=== PATIENT | male | born 1955 | race Caucasian/White ===

== ENCOUNTER 2023-12-21 15:36 | Outpatient (REF) | payer MEDICARE, SELFPAY | END 2023-12-21 15:37 | disposition home or self-care (01) | LOC: HO.BBR 15:36 | PROVIDERS: Visit Provider Family Medicine | DX: E83.110 Hereditary hemochromatosis (principal); D75.1 Secondary polycythemia | CPT/HCPCS: 85014; 85018; 99195 ==

== ENCOUNTER 2024-02-17 11:08 | Outpatient (REF) | payer MEDICARE, SELFPAY | END 2024-02-17 11:09 | disposition home or self-care (01) | LOC: HO.BBR 11:08 | PROVIDERS: Visit Provider Family Medicine | DX: D75.1 Secondary polycythemia (principal) | CPT/HCPCS: 85014; 85018; 99195 ==

== ENCOUNTER 2024-04-13 15:20 | Outpatient (REF) | payer MEDICARE, SELFPAY | END 2024-04-13 15:21 | disposition home or self-care (01) | LOC: HO.BBR 15:20 | PROVIDERS: Visit Provider Family Medicine | DX: D75.1 Secondary polycythemia (principal) | CPT/HCPCS: 85014; 85018; 99195 ==

== ENCOUNTER 2024-06-08 15:21 | Outpatient (REF) | payer MEDICARE, SELFPAY | END 2024-06-08 15:22 | disposition home or self-care (01) | LOC: HO.BBR 15:21 | PROVIDERS: Visit Provider Family Medicine | DX: D75.1 Secondary polycythemia (principal) | CPT/HCPCS: 85018; 99195 ==

== ENCOUNTER 2024-08-03 14:55 | Outpatient (REF) | payer MEDICARE, SELFPAY ==
--- OUTSIDE RECORDS SUMMARY | 2024-08-03 14:57 | XMS_ITS | Data Portability ---
Author Organization JANETTE Rosado genevieve [address] Address [address] [place] [address] Assessment No assessment recorded. Plan of Treatment Reminders Order Date Submit Date Provider Last Modified By Organization Details Last Modified Time Details Appointments None recorded. Lab None recorded. Referral None recorded. Procedures None recorded. Surgeries None recorded. Imaging None recorded. Medication Orders valacyclovi r 1 gram tablet 2022 023 [id number], [address] [place], [address], 13:53:20 Patient TargetsNo targets recorded. Patient Instructions Encounter Date Encounter Id Patient Instructions Last Modified By Organization Details Last Modified Time 02/06/2023 [id number] shingles: care instructions [email or web address] Not available 02/06/2023 13:47:03 Based on your ex am and presentation, you are being diagnosed with Shingles. You are going to start an antiviral medication to help suppress the replication of the virus and help you fight the infection. The following are my recommendations to help with your systems and allow your body to heal: 1. No creams or lotions on the vesicles/rash 2. Take Ibuprofen or Tylenol if you do not have any allergies to these medications. If you take a blood thinner you should not take NSAIDS like Ibuprofen. 3. After the rash heals if you are still having pain you can use Over The Counter Lidoderm Patches 4. Try and avoid scratching or rubbing the area to prevent a skin infection. The rash may take 2-3 weeks to completely resolve. You will most likely be done with the medication but still have the rash. In some occasions after the rash heals you may have some residual pain in that area affected - this is called POST HERPATIC NEURALGIA. If you are experiencing this, you can purchase some Lidoderm Patches over the counter and apply one every 12 hours. Most of the time, people use these to help sleep. You should be seen again if you develop any of the following symptoms. 1. Severe Headache 2. New involvement with the eye. 3. Fever 4. Stiff Neck 5. Shortness of breath. I would recommend the Shingles Vaccine. You can receive this 6 months after this infection. Thank you for using [facility], please feel free to contact us if you have any questions or concerns. [email or web address] Not available 02/06/2023 13:47:02 Reason for Referral None Reported. Problems No Known Problems Medical Equipment None Reported. Allergies No known drug allergies Medications Name Sig Start Date Stop Date Status Note LastModified by Organization Details LastModified Time valacyclovir 1 gram tablet Take 1 tablet 3 times a day by oral route for 7 days. 023 active Not Available Not Available Not Avai lable anastrozole active Not Available Not A vailable Not Available testosterone active Not Available Not Available Not Available Vitals Date Recorded Body height Body mass index (BMI) Body weight Respiratory rate Oxygen saturation Oxygen saturation in Arterial blood by Pulse oximetry Heart rate Body temperature Systolic blood pressure Diastolic blood pressure Provider Name and Address Organization Details Last Updated DateTime 3 177.8 cm 25.1 kg/m2 73138.6 6 g 18 /min 96 % 96 % 68 /min 98.1 [degF] 114 mm[Hg] 69 mm[Hg] Negra Ernst [facility] 13:27:05 Social History Question Answer Notes LastModified by Garlik ion Details LastModified Time Tobacco Smoking Status Never Smoker JANETTE Pulido [facility] 02/06/2023 13:25:59 What Is Your Level Of Alcohol Consumption? Occasional Information not available 02/06/2023 How Many Times Per Week Do You Consume Alcohol? Less Than 1 Time Per Week Information not available 02/06/2023 Which Illicit Or Recreational Drugs Have You Used? Marijuana Information not available 02/06/2023 Do You Use Any Illicit Or Recreational Drugs? Yes Information not available 02/06/2023 Have You Recently Traveled Abroad? No Information not available 02/06/2023 Do You Or Have You Ever Used Any Other Forms Of Tobacco Or Nicotine? No Information not available 02/06/2023 Sex: Unknown Functional Status None recorded. Mental Status None recorded. Family History Relationship Description Onset Age of this Age Resolved Age Notes LastModified by Organization Details LastModified Time Father No current problems or disability [email or web address] Not available 02/06 13:25:28 Mother No current problems or disability [email or web address] Not available 02/06 13:25:28 Medical History No medical history recorded. Immunizations Vaccine Type Date Status Note Provider Nam e and Address Organization Details Recorded Time COVID-19, mRNA, LNP-S, PF, 30 mcg/0.3 mL dose 08/14/2021 completed JANETTE Pulido [facility] 02/06/2023 13:22:53 COVID-19, mRNA, LNP-S, PF, 30 mcg/0.3 mL dose 12/19/2020 completed JANETTE Pulido [facility] 02/06/2023 13:22:53 COVID-19, mRNA, LNP-S, PF, 30 mcg/0.3 mL dose 01/16/2021 completed JANETTE Pulido - [facility] 02/06/2023 13:22:53 COVID-19, mRNA, LNP-S, PF, 30 mcg/0.3 mL dose, veronica-sucrose 03/20/2022 completed JANETTE Pulido [facility] 02/06/2023 13:22:53 Past Encounters Encounter ID Performer Location Encounter Start Date Encounter Closed Date Diagnosis/Indication Diagnosis SNOMED-CT Code Diagnosis ICD10 Code [id number] [address] [place] [address] 07/20/2018 14:07:00 07/20/2018 14:53:18 [id number] [facility]RIES [address] [facility] [address] [place] [address] 02/06/2023 13:07:57 02/06/2023 13:47:34 Herpes zoster 4560875 B02.9 Health Concerns Section Related Observation LastModified by Organization Detai ls LastModified Time None Recorded Concern Status LastModified by Organization Details LastModified Time None Recorded Advance Directives Directive None Recorded Payers Encounter Date Sequence Insurance Name Policy Number Policy Jules Covered Member ID Jules Member ID Guarantor Name 07/20/2018 1 [facility] (HMO) [id number] Hai Lopez [id number] Hai Lopez 02/06/2023 1 [place] [employer] Hai Lopez [id number] Hai Lopez 02/06/2023 2 [place] [facility] Hai Lopez [id number] Hai Lopez Notes Date Note Type Note Provider Name and Address Organization Details Recorded Time 3 text/html UC Rash/Skin LesionReported bypatient.source of patient informationInformation obtained from patient; Patient arrived at Urgent Care ambulatory Location:abdomen; back; Left Side Quality:itchy;painful;red Severity:mild Duration:5 days Associated Symptoms:no fever; no fatigueNotes:The patient state that he felt this about 1 week ago. Started to break out in a rash on the left back and now is spreading to the abdomen. The patient thinks it is shingles. No recent vaccination. The patient states that it is tingling but not an excruiating pain. Has not been putting any creams or lotions on the area. Thought it was from wearing his tool belt. Reports that he had chicken pox as a child. JANETTE HUMPHRIES [facility] [place], [address], [place] - [facility] 02/06/2023 14:04:58
== END 2024-08-03 14:56 | disposition home or self-care (01) ==
LOC: HO.BBR 14:55
PROVIDERS: Visit Provider Family Medicine
DX: D75.1 Secondary polycythemia (principal)
CPT/HCPCS: 85018; 99195

== ENCOUNTER 2024-09-28 14:58 | Outpatient (REF) | payer MEDICARE, SELFPAY ==
--- OUTSIDE RECORDS SUMMARY | 2024-09-28 16:05 | XMS_ITS | Data Portability ---
Author Organization JANETTE Rosado genevieve [address] Address [address] [place] [address] Assessment No assessment recorded. Plan of Treatment Reminders Order Date Submit Date Provider Last Modified By Organization Details Last Modified Time Details Appointments None recorded. Lab None recorded. Referral None recorded. Procedures None recorded. Surgeries None recorded. Imaging None recorded. Medication Orders valacyclovi r 1 gram tablet 2022 023 [id number], [address] [place], [address], 13:53:20 Patient TargetsNo targets recorded. Patient Instructions Encounter Date Encounter Id Patient Instructions Last Modified By Organization Details Last Modified Time 02/06/2023 [id number] shingles: care instructions [email or web address] Not available 02/06/2023 13:47:03 Based on your [...] after this infection. Thank you for using [employer], please feel free to contact us if you have any questions or concerns. Not available 02/06/2023 13:47:02 Reason for Referral [...] height Body mass index (BMI) Body weight Pain severity - 0-10 verbal numeric rating [Score] - Reported Respiratory rate Oxygen saturation Oxygen saturation in Arterial blood by Pulse oximetry Heart rate Body temperature Systolic blood pressure Diastolic blood pressure Provider Name and Address Organization Details Last Updated DateTime 3 177.8 cm 25.1 kg/m2 62282.6 6 g 7 18 /min 96 % 96 % 68 /min 98.1 [degF] 114 mm[Hg] 69 mm[Hg] Negra SAVAGE - [employer] [facility] 13:27:05 Social History Question Answer Notes LastModified by [employer] ion Details LastModified Time Tobacco Smoking Status [...] mcg/0.3 mL dose 08/14/2021 completed JANETTE Pulido - [facility] 02/06/2023 13:22:53 COVID-19, mRNA, LNP-S, PF, 30 mcg/0.3 mL dose 12/19/2020 completed Negra seaman [place] - [facility] 02/06/2023 13:22:53 COVID-19, mRNA, LNP-S, PF, 30 mcg/0.3 mL dose 01/16/2021 completed Negra seaman [place] - [facility] 02/06/2023 13:22:53 COVID-19, mRNA, LNP-S, PF, 30 mcg/0.3 mL dose, veronica-sucrose 03/20/2022 completed Negra seaman [place] - [facility] 02/06/2023 13:22:53 Past Encounters Encounter ID Performer Location Encounter Start Date Encounter Closed Date Diagnosis/Indication Diagnosis SNOMED-CT Code Diagnosis ICD10 Code Diagnosis Note [id number] [address] [place] [address] 07/20/2018 14:07:00 07/20/2018 14:53:18 [id number] [facility]RIES [address] [facility] [address] [place] [address] 02/06/2023 13:07:57 02/06/2023 13:47:34 Herpes zoster 5281587 B02.9 Health Concerns Section Related Observation LastModified by Organization Detai ls LastModified Time None Recorded Concern Status LastModified by Organization Details LastModified Time None Recorded Advance Directives Directive None Recorded Payers Encounter Date Sequence Insurance Name Policy Number Policy Jules Covered Member ID Jules Member ID Guarantor Name 07/20/2018 1 [facility] (O) [id number] Hai Lopez [id number] Hai Lopez 02/06/2023 1 [place] [employer] [place] Hai Lopez [id number] Hai Lopez 02/06/2023 2 [place] [facility] Hai Lopez [id number] Hai Lopez Notes Date Note Type Note [...] chicken pox as a child. JANETTE HUMPHRIES [address] [place], [address], [place] - [facility] 02/06/2023 14:04:58
== END 2024-09-28 14:59 | disposition home or self-care (01) ==
LOC: HO.BBR 14:58
PROVIDERS: Visit Provider Family Medicine
DX: D75.1 Secondary polycythemia (principal)
CPT/HCPCS: 85018; 99195

== ENCOUNTER 2024-11-23 15:30 | Outpatient (REF) | payer MEDICARE, SELFPAY ==
--- OUTSIDE RECORDS SUMMARY | 2024-11-23 18:04 | XMS_ITS | Data Portability ---
Author Organization JANETTE Rosado genevieve [address] Address [address] [place] [address] Assessment No assessment recorded. Plan of Treatment Reminders Order Date Submit Date Provider Last Modified By Organization Details Last Modified Time Details Appointments None recorded. Lab None recorded. Referral None recorded. Procedures None recorded. Surgeries None recorded. Imaging None recorded. Medication Orders valacyclovi r 1 gram tablet 2022 023 [email or web address] [id number], [address] [place], [address], 13:53:20 Patient TargetsNo targets recorded. Patient Instructions Encounter Date Encounter Id Patient Instructions Last Modified By Organization Details Last Modified Time 02/06/2023 [id number] shingles: care instructions [email or web address] Not available 02/06/2023 13:47:03 Based on your [...] after this infection. Thank you for using [facility], please feel free to contact us if you have any questions or concerns. [email or web address] Not available 02/06/2023 13:47:02 Reason for Referral [...] Updated DateTime 3 177.8 cm 25.1 kg/m2 32570.6 6 g 7 18 /min 96 % 96 % 68 /min 98.1 [degF] 114 mm[Hg] 69 mm[Hg] Negra SAVAGE - [facility] 13:27:05 Social History Question Answer Notes LastModified by [employer] ion Details LastModified Time Tobacco Smoking Status [...] SNOMED-CT Code Diagnosis ICD10 Code Diagnosis Note [id number] [address] [place] [address] 07/20/2018 14:07:00 07/20/2018 14:53:18 [id number] [facility]ES [address] [facility] [address] [place] [address] 02/06/2023 13:07:57 02/06/2023 13:47:34 Herpes zoster 4432140 B02.9 Health Concerns Section Related Observation LastModified by Organization Detai ls LastModified Time None Recorded Concern Status LastModified by Organization Details LastModified Time None Recorded Advance Directives Directive None Recorded Payers Encounter Date Sequence Insurance Name Policy Number Policy Jules Covered Member ID Jules Member ID Guarantor Name 07/20/2018 1 [facility] (O) [id number] Hai Lopez [id number] Hai Lopez 02/06/2023 1 [place] [employer] Hai Lopez [id number] Hai Lopez 02/06/2023 2 [place] [facility] Hia Lopez [id number] Hai Lopez Notes Date Note Type Note [...] child. JANETTE HUMPHRIES [address] [place], [address], [place] - [facility] 02/06/2023 14:04:58
== END 2024-11-23 15:31 | disposition home or self-care (01) ==
LOC: HO.BBR 15:30
PROVIDERS: Visit Provider Family Medicine
DX: D75.1 Secondary polycythemia (principal)
CPT/HCPCS: 85018; 99195

== ENCOUNTER 2025-02-26 15:32 | Outpatient (REF) | payer MEDICARE, SELFPAY ==
--- OUTSIDE RECORDS SUMMARY | 2025-02-26 16:02 | XMS_ITS | Clinical Summary ---
Author Organization [facility] Address [address] [facility] [address] [place] [address] Phone Care Team Providers Care Silk Screen Printer Machine Name Role Phone Pcp, Unknown Primary Care Provider Unavailabl e Medications testosterone cypionate (DEPO-TESTOTERON E) 100 mg/mL injection Inject 100 mg into the muscle every 14 (fourteen) days. Active anastrozole (ARIMIDEX) 1 mg tablet Take 1 mg by mouth daily. Active Active Problems Problem Noted Date Diagnosed Date Testosterone deficiency 01/07/2018 Overview (01/07/2018): Previously tested by [facility] Immunizations Immunization Administration Dates Next Due COVID-19 (Pre-05/31) Pfizer Vaccine, mRNA, PF ,12/19/2020 Family History Medical History Relation Comments Scleroderma Mother Relation Status Comments Daughter 1 Alive Daughter 2 Alive Father Mother Son 1 Alive Son 2 Alive Social History Tobacco Use Types Packs/Day Years Used Date Smoking Tobacco: Never Smokeless Tobacco: Never Alcohol Use Standard Drinks/Week Comments Yes 0 (1 standard drink = 0.6 oz pur e alcohol) 4/month Education Answer Date Recorded Are you interested in more education? Not on quinten e 12/19/2022 Are you concerned about learning? Not on file 12/19/2022 No 12/19/2022 No 12/19/2022 Digital Access Answer Date Recorded No 01/04/2023 No 01/04/2023 No 01/04/2023 Reliable internet access at home? Not on file 01/04/2023 Device with a working camera? Not on file Sex and Gender Information Value Date Recorded Sex Assigned at Not on file Legal Sex Male 7:03 PM EST Gender Identity Not on file Sexual Orientation Not on file Last Filed Vital Signs Vital Sign Reading Time Taken Comments Blood Pressure 108/72 01/07/2018 2:48 PM EDT Pulse 76 01/07/2018 2:48 PM EDT Temperature - - Respiratory Rate - - Oxygen Saturation 94% 01/07/2018 2:48 PM EDT Inhaled Oxygen Concentration - - Weight 82.1 kg (181 lb) 01/07/2018 2:48 PM EDT Height - - Body Mass Index - - Plan of Treatment Health Maintenance Due Date Last Done Comments Adult Td,Tdap Booster 1957 LIPID PANEL 1957 DEPRESSION SCREENING 1969 HEPATITIS C SCREENING 11/30/1975 COLOGUARD 2002 COLONOSCOPY 2002 COLORECTAL CANCER SCREENING 2002 FIT TEST 2002 FOBT 2002 SIGMOIDOSCOPY 2002 VIRTUAL COLONOSCOPY 2002 PNEUMOCOCCAL VACCINES (50+ years) (1 of 1 - PCV) 11/30/2007 ZOSTER VACCINES (1 of 2) 11/30/2007 COVID-19 VACCINE (3 - 2023-2 5 season) 2024 01/16/2021, 12/19/2020 RSV VACCINE (1 - 1-dose 75+ series) 2032 SMOKING STATUS SCREENING (On ce After 26 Yrs) Completed 01/07/2018 HEPATITIS A VACCINES Aged Out No long er eligible based on patient's age to complete this topic HIB VACCINES Aged Out No longer eligi ble based on patient's age to complete this topic MENINGOCOCCAL VACCINES (ACWY) Aged Out No longer eligible based on patient's age to complete this topic MENINGOCOCCAL VACCINES (B) Aged Out N o longer eligible based on patient's age to complete this topic Medical Devices Not on file [facility] DANIEL XAVIER [facility] NON NSPG PCP [employer]IL[employer] CONNE[employer]ARE [facility] NON NSPG PCP SILVER [employer]ITY CONNECTORCARE [employer] NON NSPG PCP SILVER CL[employer]ITY CONNECTORCARE [employer] NON NSPG PCP SILVER CL[employer]ITY CONNE[employer]CARE [employer] NON NSPG PCP SILVER CL[employer]ITY CONNE[employer]CARE [employer] NON NSPG PCP SIL[employer] CONNE[employer]CARE [employer] NON NSPG PCP S[employer] CONNE[employer] NON NSPG PCP [employer] CONNE[employer]CARE Care Teams Silk Screen Printer Machine Relationship Specialty Start Date End Date Pcp, Unknown PCP - General 02/04/22 Additional Source Comments The information contained in this document represents components of the legal health record. It is not the complete legal health record.[facility]
--- OUTSIDE RECORDS SUMMARY | 2025-02-26 16:02 | XMS_ITS | Data Portability ---
Author Organization JANETTE Rosado genevieve [address] Address [address] [place] [address] Assessment No assessment recorded. Plan of Treatment Reminders Order Date Submit Date Provider Last Modified By Organization Details Last Modified Time Details Appointments None recorded. Lab None recorded. Referral None recorded. Procedures None recorded. Surgeries None recorded. Imaging None recorded. Medication Orders valacyclovi r 1 gram tablet 2022 023 [id number], [address] [place], [address], 13:53:20 Patient TargetsNo targets recorded. Patient Instructions Encounter Date Encounter Id Patient Instructions Last Modified By Organization Details Last Modified Time 02/06/2023 [id number] shingles: care instructions [email or web address] Not available 02/06/2023 13:47:03 Based on your [...] after this infection. Thank you for using [facility], please feel free to contact us if you have any questions or concerns. [email or web address] Not available 02/06/2023 13:47:02 Reason for Referral [...] Pulse oximetry Heart rate Body temperature Systolic And Diastolic Provider Name and Address Organization Details Last Updated DateTime 3 177.8 cm 25.1 kg/m2 61129.6 6 g 18 /min 96 % 96 % 68 /min 98.1 [degF] 114/69 mm[Hg] Negra Ernst [facility] [employer] [facility] 13:27:05 Social History Question Answer Notes LastModified by [employer] Details LastModified Time Tobacco Smoking Status Never Smoker JANETTE Pulido [facility] 02/06/2023 13:25:59 Which Illicit Or Recreational Drugs Have You Used? Marijuana Information not available 02/06/2023 Have You Recently Traveled Abroad? No Information not available 02/06/2023 Sex: Unknown Functional Status Question Answer Note LastModified by [employer] Details LastModified Time How many times per week do you consume alcohol? Less than 1 time per week Information not available 02/06/2023 Do you use any illicit or recreational drugs? Yes Information not available 02/06/2023 Do you or have you ever used any other forms of tobacco or nicotine? No Information not available 02/06/2023 What is your level of alcohol consumption? Occasional Information not available 02/06/2023 Mental Status None recorded. Family History Relationship [...] PF, 30 mcg/0.3 mL dose 08/14/2021 completed Negra seaman [place] - [facility] [...] SNOMED-CT Code Diagnosis ICD10 Code Diagnosis Note [id number] [address] [place] [address] 07/20/2018 14:07:00 07/20/2018 14:53:18 [id number] JANETTE HUMPHRIES [address] [facility] [address] [place] [address] 02/06/2023 13:07:57 02/06/2023 13:47:34 Herpes zoster 3247912 B02.9 Health Concerns Section Related Observation LastModified by Organization Detai ls LastModified Time None Recorded Concern Status LastModified by Organization Details LastModified Time None Recorded Advance Directives Directive None Recorded Payers Insurance Date Sequence Insurance Name Policy Number Policy Jules Covered Member ID Jules Member ID Guarantor Name 02/06/2023 1 [facility] (HMO) [id number] Hai Buenonarcisosneha [id number] Hai Buenonarcisosneha 02/06/2023 1 [place] [employer] SERVICES Hai Lopez Jr [id number] Hai Buenonarcisosneha 02/06/2023 1 [facility] - TOGETHER (MEDICAID HMO) Hai Buenonarcisosneha [id number] Hai Buenonarcisosneha 06/30/2023 2 [place] [facility] Hai John [id number] Hai Ursulasneha Notes Date Note Type Note Provider Name [...] pox as a child. JANETTE HUMPHRIES [address] [place], [address], [place] - [facility] 02/06/2023 14:04:58
== END 2025-02-26 15:33 | disposition home or self-care (01) ==
LOC: HO.BBR 15:32
PROVIDERS: Visit Provider Family Medicine
DX: D75.1 Secondary polycythemia (principal)
CPT/HCPCS: 85018; 99195

== ENCOUNTER 2025-04-27 15:30 | Outpatient (REF) | payer MEDICARE, SELFPAY ==
--- OUTSIDE RECORDS SUMMARY | 2025-04-27 15:31 | XMS_ITS | Clinical Summary ---
Author Organization Located [facility] Address [address] [facility] [address] [place] [phone] Phone Care Team Providers Care Mine Promotor Name Role Phone Pcp, Unknown Primary Care [...] 11/30/2007 ZOSTER VACCINES (1 of 2) 11/30/2007 INFLUENZA VACCINE (#1) 2025 COVID-19 VACCINE (3 - 2024-2 6 season) 2025 01/16/2021, 12/19/2020 RSV VACCINE (1 - 1-dose [...] topic Medical Devices Not on file Insurance [employer] NON NSPG PCP [employer]VER [employer] [place] [employer] NON NSPG PCP S[employer] [place] [employer] NON NSPG PCP [employer]ITY CONNE[place]ARE [place] [id number] [employer] NON NSPG PCP SILVER [employer]ITY CONNE[employer]ARE [place] NON NSPG PCP SILVER [employer]ITY CONNE[employer]CARE [employer] NON NSPG PCP SILVER [employer]ITY CONNECTORCARE [employer] NON NSPG PCP S[employer] CONNE[employer]CARE [employer] NON NSPG PCP S[employer] CONNE[employer]CARE [employer] NON NSPG PCP [employer] CONNE[employer]CARE Care Teams Mine Promotor Relationship Specialty Start Date End Date Pcp, Unknown PCP - General 02/04/22 Additional Source Comments The information contained in this document represents components of the legal health record. It is not the complete legal health record.[facility]
== END 2025-04-27 15:31 | disposition home or self-care (01) ==
LOC: HO.BBR 15:30
PROVIDERS: Visit Provider Family Medicine
DX: D75.1 Secondary polycythemia (principal)
CPT/HCPCS: 85014; 85018; 99195

== ENCOUNTER 2025-06-22 15:34 | Outpatient (REF) | payer MEDICARE, SELFPAY ==
--- OUTSIDE RECORDS SUMMARY | 2025-06-23 00:42 | XMS_ITS | Data Portability ---
Author Organization JANETTE Rosado genevieve [id number] Address [address] [place] [address] Assessment No assessment recorded. Plan of Treatment Reminders Order Date Submit Date Provider Last Modified By Organization Details Last Modified Time Details Appointments None recorded. Lab None recorded. Referral None recorded. Procedures None recorded. Surgeries None recorded. Imaging None recorded. Medication Orders valacyclovi r 1 gram tablet 2022 023 [id number] [id number], [address] [place], [address], 13:53:20 Patient TargetsNo targets recorded. Patient Instructions Encounter Date Encounter Id Patient Instructions Last Modified By Organization Details Last Modified Time 02/06/2023 [id number] shingles: care instructions [email or web address] Not available 02/06/2023 13:47:03 Based on your [...] after this infection. Thank you for using [facility], please feel free to contact us if you have any questions or concerns. [email or web address] Not available 02/06/2023 13:47:02 Reason for Referral [...] Updated DateTime 3 177.8 cm 25.1 kg/m2 48179.6 6 g 7 18 /min 96 % 96 % 68 /min 98.1 [degF] 114/69 mm[Hg] Negra SAVAGE [employer] 3 13:27:05 Social History Question Answer Notes LastModified by [employer] Details LastModified Time Tobacco Smoking Status Never Smoker JANETTE Pulido [employer] 02/06/2023 13:25:59 Which Illicit Or Recreational Drugs Have You Used? Marijuana Information not available 02/06/2023 Have You Recently Traveled Abroad? No Information not available 02/06/2023 Sex: Unknown Functional Status Question Answer Note LastModified by [employer] Details LastModified Time How many times per [...] Diagnosis SNOMED-CT Code Diagnosis ICD10 Code Diagnosis IMO Codes Diagnosis Note [id number] _Hadderek Sethi [address] [place] [address] 07/20/2018 14:07:00 07/20/2018 14:53:18 [id number] JANETTE HUMPHRIES [address] [address] 02/06/2023 13:07:57 02/06/2023 13:47:34 Herpes zoster 0002210 B02.9 Health Concerns Section Related Observation LastModified by Organization Detai ls LastModified Time None Recorded Concern Status LastModified by Organization Details LastModified Time None Recorded Advance Directives Directive None Recorded Payers Insurance Date Sequence Insurance Name Policy Number Policy Jules Covered Member ID Jules Member ID Guarantor Name 02/06/2023 1 [employer] [facility] [employer] [id number] Hai Opalenik [id number] Hia Opalenik 02/06/2023 1 [place] [employer] Hai Buenonarcisosneha Jr [id number] Hai Opalenik 02/06/2023 1 [facility] PUBLIC [facility] - TOGETHER (MEDICAID HMO) Hai Buenonarcisosneha [id number] Hai Opalensneha 06/30/2023 2 [place] [facility] Hai Buenonarcisoik [id number] Hai Ximenanarcisosneha Notes Date Note Type Note Provider Name and Address Organization Details Recorded Time 02/06/2023 text/html UC Rash/Skin LesionReported by PatientHPIFor quality, patient reportscarlos santacruz andred. For source of patient information, patient reportsinformation obtained from patientandpatient arrived at urgent care ambulatory. For location, patient reportsabdomenandback(l eft side). For severity, patient reportsmild. For duration, patient reports5 days. For associated symptoms, patient reportsno feverandno fatigue.The patient state that he felt this about [...] pox as a child. JANETTE HUMPHRIES [address] [place], [address], [place] - [facility] 02/06/2023 14:04:58
--- OUTSIDE RECORDS SUMMARY | 2025-06-23 00:42 | XMS_ITS | Clinical Summary ---
Author Organization [facility] Address [address] [place] [phone] Phone Care Team Providers Care Metal Alloy Scientist Name Role Phone Pcp, Unknown Primary Care [...] on patient's age to complete this topic IPV VACCINES Aged Out No longer eligi ble based on patient's age to complete this topic MENINGOCOCCAL VACCINES (ACWY) Aged Out No longer eligible based on patient's age to complete this topic MENINGOCOCCAL VACCINES (B) Aged Out N o longer eligible based on patient's age to complete this topic Medical Devices Not on file Insurance [employer] NON NSPG PCP S[place]VER [employer] PCP SILVER CLARITY CONNECTORCARE [place] NON NSPG PCP SILVER CLARITY CONNECTORCARE [employer] NON NSPG PCP SILVER CLARITY CONNECTORCARE [employer] NON NSPG PCP SILVER CLARITY CONNECTORCARE [place] NON NSPG PCP SILVER CLARITY CONNECTORCARE [place] NON NSPG PCP SILVER CLARITY CONNECTORCARE [employer] NON NSPG PCP SILVER CLARITY CONNECTORCARE [place] NON NSPG PCP SILVER CLARITY CONNECTORCARE Care Teams Metal Alloy Scientist Relationship Specialty Start Date End Date Pcp, Unknown PCP - General 02/04/22 Additional Source Comments The information contained in this document represents components of the legal health record. It is not the complete legal health record.[facility]
== END 2025-06-22 15:35 | disposition home or self-care (01) ==
LOC: HO.BBR 15:34
PROVIDERS: Visit Provider Family Medicine
DX: D75.1 Secondary polycythemia (principal)
CPT/HCPCS: 85018; 99195